=== PATIENT | male | born 1950 | race Caucasian/White ===

== ENCOUNTER → 2016-11-01 | Outpatient (CLI) | payer OTHER | LOC: RAD 10:51 | DX: R94.39 Abnormal result of other cardiovascular function study (principal) | CPT/HCPCS: 71020 ==

== ENCOUNTER → 2016-11-19 | Outpatient (CLI) | payer OTHER | LOC: LAB 14:01 | DX: R07.9 Chest pain, unspecified (principal); I48.0 Paroxysmal atrial fibrillation; I12.9 Hypertensive chronic kidney disease with stage 1 through stage 4 chronic kidney disease, or unspecified chronic kidney disease; N18.3 Chronic kidney disease, stage 3 (moderate) | CPT/HCPCS: 36415; 80048; 93005 ==

== ENCOUNTER → 2016-11-21 | Outpatient (CLI) | payer OTHER | LOC: LAB 11:35 | PROVIDERS: Internal Medicine Nephrology | DX: E11.9 Type 2 diabetes mellitus without complications (principal); N18.3 Chronic kidney disease, stage 3 (moderate) | CPT/HCPCS: 36415; 80053; 80061; 82043; 82570; 83036 ==

== ENCOUNTER → 2020-07-28 | Outpatient (CLI) | payer OTHER | LOC: LAB 11:09 | PROVIDERS: Internal Medicine Nephrology | DX: E11.22 Type 2 diabetes mellitus with diabetic chronic kidney disease (principal); K85.90 Acute pancreatitis without necrosis or infection, unspecified; N18.30 Chronic kidney disease, stage 3 unspecified; Z13.29 Encounter for screening for other suspected endocrine disorder | CPT/HCPCS: 36415; 80053; 80076; 82150; 83036; 83690; 84443 ==

== ENCOUNTER → 2020-12-08 | Outpatient (CLI) | payer OTHER ==
[2020-12-08 13:56] LABS: BUN/CREATININE RATIO 21 (0-10)
[2020-12-09 09:13] LABS: CREATININE, URINE 88.4 mg/dL (Not Estab.)
== END ==
LOC: LAB 11:35
PROVIDERS: Internal Medicine Nephrology
DX: E78.2 Mixed hyperlipidemia (principal); E11.65 Type 2 diabetes mellitus with hyperglycemia
CPT/HCPCS: 36415; 80053; 80061; 82043; 82570; 83036

== ENCOUNTER 2021-02-10 13:21 | Emergency (ER) | payer OTHER ==
[~2021-02-10] VITALS: Ht 172.7 cm; Wt 93.9 kg
== END 2021-02-10 18:50 | disposition home or self-care (01) ==
LOC: ER1 13:21
DX: S61.452A Open bite of left hand, initial encounter (principal); I11.9 Hypertensive heart disease without heart failure; I10 Essential (primary) hypertension; W55.51XA Bitten by raccoon, initial encounter; Z23 Encounter for immunization
CPT/HCPCS: 90375; 90376; 90471; 90675; 90715; 96372; 99283

== ENCOUNTER 2021-02-13 08:52 | Emergency (ER) | payer OTHER | END 2021-02-13 10:00 | disposition home or self-care (01) | LOC: ER1 08:52 | DX: S61.255A Open bite of left ring finger without damage to nail, initial encounter (principal); W55.51XA Bitten by raccoon, initial encounter; Z23 Encounter for immunization | CPT/HCPCS: 90471; 90675; 96372; 99283 ==

== ENCOUNTER → 2021-08-21 | Outpatient (CLI) | payer OTHER ==
[2021-08-21 15:55] LABS: HEMOGLOBIN 15.5 gm/dl (14.0-17.5); RED BLOOD COUNT 5.28 M/UL (4.20-5.50); WHITE BLOOD COUNT 8.1 K/UL (4.5-11.0)
== END ==
LOC: LAB 14:44
PROVIDERS: Internal Medicine Nephrology
DX: Z13.29 Encounter for screening for other suspected endocrine disorder (principal); E11.21 Type 2 diabetes mellitus with diabetic nephropathy; R19.5 Other fecal abnormalities
CPT/HCPCS: 36415; 80053; 82043; 82570; 82728; 83036; 83540; 83550; 84443; 85025; 85027

== ENCOUNTER → 2021-12-27 | Outpatient (CLI) | payer OTHER ==
[2021-12-27 10:24] LABS: HEMOGLOBIN 14.6 gm/dl (14.0-17.5); RED BLOOD COUNT 4.97 M/UL (4.20-5.50); WHITE BLOOD COUNT 8.5 K/UL (4.5-11.0)
[2021-12-28 09:14] LABS: CREATININE, URINE 78.8 mg/dL (Not Estab.)
== END ==
LOC: LAB 10:01
PROVIDERS: Internal Medicine Nephrology
DX: E11.22 Type 2 diabetes mellitus with diabetic chronic kidney disease (principal); N18.31 Chronic kidney disease, stage 3a
CPT/HCPCS: 36415; 80053; 82043; 82570; 82728; 83036; 83540; 83550; 85027